=== PATIENT | male | born 1985 | race Caucasian/White ===

== ENCOUNTER 2017-08-21 17:13 | Emergency (ER) | payer BC ==
[~2017-08-21 17:13] MED LIST: DICY1TAB26 PO; LOMO PO; ZOFR4TAB3 SL
[2017-08-21 17:15] VITALS: BP 136/88; PULSE 56; RESP 16; TEMP 98; O2SAT 99
[2017-08-21 19:03] LABS: AUTOMATED NEUTROPHIL # 3.7 TH/MM3 (1.8-7.7); BASOPHIL % 0.6 % (0.0-2.0); EOSINOPHIL # 0.2 TH/MM3 (0-0.4); EOSINOPHIL % 2.5 % (0.0-4.0); HEMATOCRIT 40.3 % (39.0-51.0); HEMOGLOBIN 14.1 GM/DL (13.0-17.0); LYMPH % 38.6 % (9.0-44.0); LYMPHOCYTE # 2.9 TH/MM3 (1.0-4.8); MEAN CORPUSCULAR HEMOGLOBIN 31.2 PG (27.0-34.0); MEAN PLATELET VOLUME 8.5 FL (7.0-11.0); MONO % 7.9 % (0.0-8.0); MONOCYTE # 0.6 TH/MM3 (0-0.9); NEUT % 50.4 % (16.0-70.0); PLATELET COUNT 270 TH/MM3 (150-450); RED BLOOD COUNT 4.53 MIL/MM3 (4.50-5.90); RED CELL DISTRIBUTION WIDTH 13.2 % (11.6-17.2); WHITE BLOOD COUNT 7.4 TH/MM3 (4.0-11.0)
[2017-08-21 19:14] LABS: BICARBONATE 24.1 MEQ/L (21.0-32.0); CALCIUM 9.7 MG/DL (8.5-10.1); CREATININE 0.94 MG/DL (0.60-1.30)
--- NOTE | 2017-08-21 19:53 | RADRPT ---
EXAM DATE/TIME: 08/21/2017 19:40 [place] COMPARISON: No previous studies available for comparison. INDICATIONS : Left tibia cat bite. MEDICAL HISTORY : None. SURGICAL HISTORY : None. ENCOUNTER: Initial ACUITY: 3 weeks PAIN SCORE: 3/10 LOCATION: Left middle lateral tibia. FINDINGS: Two view examination of the left tibia demonstrates no evidence of fracture or dislocation. Bony min eralization is normal. The soft tissue structures are intact. CONCLUSION: Normal examination for a patient of this age. Judd Rush MD on August 21, 2017 at 19:50 Board Certified Radiologist. This report was verified electronically.
[2017-08-21] MEDS ORDERED: BACT800T5 PO (20:14)
[2017-08-21] MEDS ORDERED: MUPI2OIN TOPICAL (20:14)
--- NOTE | 2017-08-21 20:14 | PD ---
HPI Chief Complaint: Bite or Sting Time Seen by Provider: 19:07 Travel History International Travel<30 days: No Contact w/Intl Traveler<30days: No Traveled to known affect area: No History of Present Illness HPI Patient is a 32-year-old male presenting to emergency department for evaluation of a cat bite. Patient injury occurred on 08/03/17. He went to his primary doctor was prescribed 10 days of doxycycline and clindamycin which she completed. He reports that he's had continued oozing from the site to his left alba. He reports it is tender to touch and rates his pain a 3 out of 10. The pain is exacerbated with touch. It is alleviated at rest. Symptom onset was gradual. He denies any fever, chills, nausea, vomiting, or warmth or increasing redness. He was advised by his primary doctor to come to the emergency department to be evaluated if it was not healed. Patient has been using peroxide to clean the area. He was bitten by his own cat which is up-to- date with immunizations. PFSH Past Medical History Cancer: No High Cholesterol: Yes Diabetes: No Diminished Hearing: No Gastrointestinal Disorders: Yes (asymptomatic gallstone, suspected peptic ulcer disease) Hepatitis: No Hiatal Hernia: No Immunizations Current: Yes Thyroid Disease: No Past Surgical History Abdominal Surgery: Yes (RT INGUINAL HERNIA REPAIRED AT AGE 5) Cardiac Surgery: No Cholecystectomy: Yes Ear Surgery: No Endocrine Surgery: No Eye Surgery: No Genitourinary Surgery: No Gynecologic Surgery: No Oral Surgery: No Pacemaker: No Thoracic Surgery: No Other Surgery: Yes (RT INGUINAL HERNIA REPAIR IN CHILDHOOD) Social History Alcohol Use: Yes (SOCIALLY) Tobacco Use: No Substance Use: No Allergies-Medications (Allergen,Severity, Reaction): Coded Allergies: penicillin G (Unverified Allergy, Intermediate, HIVES, 08/21/17) PT STATES ANAPHYLAXIS--THROAT SWELLING codeine (Unverified Adverse Reaction, Severe, VOMIT & SOB, 08/21/17) Reported Meds & Prescriptions Reported Meds & Active Scripts Active Review of Systems Except as stated in HPI: all other systems reviewed are Neg Skin: Positive Change in Pigmentation, Positive Lesions Physical Exam Narrative GENERAL: Well-developed, well-nourished, alert male. Resting in no acute distress. SKIN: Warm and dry. 1 mm ulceration to the left anterior alba with mild surrounding induration which is purple in color. Minimal Serosanguineous discharge noted. No foul odor. HEAD: Atraumatic. Normocephalic. EYES: Pupils equal and round. No scleral icterus. No injection or drainage. ENT: No nasal bleeding or discharge. Mucous membranes pink and moist. NECK: Trachea midline. No JVD. CARDIOVASCULAR: Regular rate and rhythm. RESPIRATORY: No accessory muscle use. Clear to auscultation. Breath sounds equal bilaterally. GASTROINTESTINAL: Abdomen soft, non-tender, nondistended. Hepatic and splenic margins not palpable. MUSCULOSKELETAL: Extremities without clubbing, cyanosis, or edema. No obvious deformities. NEUROLOGICAL: Awake and alert. No obvious cranial nerve deficits. Motor grossly within normal limits. Five out of 5 muscle strength in the arms and legs. Normal speech. PSYCHIATRIC: Appropriate mood and affect; insight and judgment normal. Data Data Last Documented VS Vital Signs Date Time Temp Pulse Resp B/P (MAP) Pulse Ox O2 Delivery O2 Flow Rate FiO2 08/21/17 17:15 98.0 56 16 136/88 (104) 99 Orders Orders Complete Blood Count With Diff (08/21/17 17:41) Basic Metabolic Panel (Bmp) (08/21/17 17:41) W[place]gren Sedimentation Rate (08/21/17 17:41) Tibia/Fibula (Ap/Lat) (08/21/17 ) Wound Culture And Gram Stain (08/21/17 19:24) Labs Laboratory Tests Test 08/21/17 18:45 White Blood Count 7.4 TH/MM3 Red Blood Count 4.53 MIL/MM3 Hemoglobin 14.1 GM/DL Hematocrit 40.3 % Mean Corpuscular Volume 89.0 FL Mean Corpuscular Hemoglobin 31.2 PG Mean Corpuscular Hemoglobin Concent 35.0 % Red Cell Distribution Width 13.2 % Platelet Count 270 TH/MM3 Mean Platelet Volume 8.5 FL Neutrophils (%) (Auto) 50.4 % Lymphocytes (%) (Auto) 38.6 % Monocytes (%) (Auto) 7.9 % Eosinophils (%) (Auto) 2.5 % Basophils (%) (Auto) 0.6 % Neutrophils # (Auto) 3.7 TH/MM3 Lymphocytes # (Auto) 2.9 TH/MM3 Monocytes # (Auto) 0.6 TH/MM3 Eosinophils # (Auto) 0.2 TH/MM3 Basophils # (Auto) 0.0 TH/MM3 CBC Comment DIFF FINAL Differential Comment Erythrocyte Sedimentation Rate 11 mm/hr Blood Urea Nitrogen 13 MG/DL Creatinine 0.94 MG/DL Random Glucose 88 MG/DL Calcium Level 9.7 MG/DL Sodium Level 138 MEQ/L Potassium Level 3.7 MEQ/L Chloride Level 106 MEQ/L Carbon Dioxide Level 24.1 MEQ/L Anion Gap 8 MEQ/L Estimat Glomerular Filtration Rate 92 ML/MIN MDM Medical Decision Making Medical Screen Exam Complete: Yes Emergency Medical Condition: Yes Interpretation(s) Last Impressions Tibia/Fibula X-Ray 08/21/17 0000 Signed Impressions: Service Date/Time: Monday, August 21, 2017 19:40 - CONCLUSION: Normal examination for a patient of this age. Judd Rush MD Laboratory Tests Test 08/21/17 18:45 White Blood Count 7.4 TH/MM3 Red Blood Count 4.53 MIL/MM3 Hemoglobin 14.1 GM/DL Hematocrit 40.3 % Mean Corpuscular Volume 89.0 FL Mean Corpuscular Hemoglobin 31.2 PG Mean Corpuscular Hemoglobin Concent 35.0 % Red Cell Distribution Width 13.2 % Platelet Count 270 TH/MM3 Mean Platelet Volume 8.5 FL Neutrophils (%) (Auto) 50.4 % Lymphocytes (%) (Auto) 38.6 % Monocytes (%) (Auto) 7.9 % Eosinophils (%) (Auto) 2.5 % Basophils (%) (Auto) 0.6 % Neutrophils # (Auto) 3.7 TH/MM3 Lymphocytes # (Auto) 2.9 TH/MM3 Monocytes # (Auto) 0.6 TH/MM3 Eosinophils # (Auto) 0.2 TH/MM3 Basophils # (Auto) 0.0 TH/MM3 CBC Comment DIFF FINAL Differential Comment Erythrocyte Sedimentation Rate 11 mm/hr Blood Urea Nitrogen 13 MG/DL Creatinine 0.94 MG/DL Random Glucose 88 MG/DL Calcium Level 9.7 MG/DL Sodium Level 138 MEQ/L Potassium Level 3.7 MEQ/L Chloride Level 106 MEQ/L Carbon Dioxide Level 24.1 MEQ/L Anion Gap 8 MEQ/L Estimat Glomerular Filtration Rate 92 ML/MIN Vital Signs Date Time Temp Pulse Resp B/P (MAP) Pulse Ox O2 Delivery O2 Flow Rate FiO2 08/21/17 17:15 98.0 56 16 136/88 (104) 99 Differential Diagnosis Osteomyelitis versus cellulitis versus abscess versus metabolic abnormality versus other Narrative Course Patient presented for reevaluation of a Bite that occurred for 2 weeks ago. He was compliant with previously prescribed antibiotics. He is vital signs are stable, he is well-appearing. Labs reviewed, no acute findings identified. Wound Culture obtained and is pending. X-ray of the left tibia/fibula is negative for bony infarct. At this point patient will be placed on Bactrim, he was strongly advised to stop using peroxide to clean the wound. Also be given a prescription for mupirocin ointment. He was advised to follow-up with his primary doctor. He was encouraged to return to emergency department for any new or worsening symptoms. Patient verbalized understanding of instructions. Patient is stable for discharge. Diagnosis Primary Impression: Cat bite of left lower leg Qualified Codes: S81.852D - Open bite, left lower leg, subsequent encounter; W55.01XD - Bitten by cat, subsequent encounter Additional Impression: Cellulitis and abscess of left leg Referrals: Primary Care Physician 2 days Patient Instructions: Acute Wound Care (GEN), General Instructions Additional Instructions: Follow-up with your primary doctor in 1-2 days Do not use peroxide to clean wound, this will debride new tissue prolonging healing process Apply mupirocin ointment twice daily, keep wound covered with nonocclusive dressing Complete full course of antibiotics as prescribed, wound cultures pending should your antibiotics need to be changed will be notified. Return to emergency department for any new or worsening symptoms Med/Other Pt SpecificInfo: Prescription(s) given Scripts Mupirocin Topical (Mupirocin Topical) 2 % Oint 1 APPLIC TOPICAL BID for Mgmt Bacterial Infection, #22 GM 0 Refills Prov: Karina Hein 08/21/17 Sulfamethoxazole-Trimethoprim (Bactrim DS) 800-160 Mg Tab 1 TAB PO BID for Infection, #20 TAB 0 Refills Prov: Karina Hein 08/21/17 Disposition: 01 DISCHARGE HOME Condition: Stable Karina Hein Aug 21, 2017 20:14
== END 2017-08-21 20:21 | disposition home or self-care (01) ==
LOC: NEPD 17:13
DX: L02.416 Cutaneous abscess of left lower limb (principal); L03.116 Cellulitis of left lower limb; S81.852D Open bite, left lower leg, subsequent encounter; W55.01XD Bitten by cat, subsequent encounter
CPT/HCPCS: 73590; 80048; 85025; 85652; 87070; 87205; 99284